=== PATIENT | female | born 1965 | race Caucasian/White ===

== ENCOUNTER 2018-10-27 06:11 | Day surgery (SDC) | payer SELFPAY ==
[2018-10-26 09:33] VITALS: BMI 21.9
[2018-10-27] MEDS ORDERED: MIDAZOLAM HCL 2 MG/2 ML SINGLE DOSE VIAL ONE (07:19)
[2018-10-27] MEDS ORDERED: ROCURONIUM BROMIDE 50 MG/5 ML VIAL ONE (07:19)
[2018-10-27] MEDS ORDERED: PROPOFOL 20 ML ONE ×2 (07:19→14:14)
[2018-10-27] MEDS ORDERED: SUCCINYLCHOLINE CHLORIDE 200 MG/10 ML VIAL ONE (07:19)
[2018-10-27] MEDS ORDERED: LIDOCAINE HCL/PF 2% SDV 5ML VIAL ONE (07:20)
[2018-10-27] MEDS ORDERED: SODIUM CHLORIDE 0.9% P/F 10 ML VIAL IJ ONE (07:20)
[2018-10-27] MEDS ORDERED: ceFAZolin SODIUM 1 GM VIAL ONE (07:20)
[2018-10-27] MEDS ORDERED: DEXAMETHASONE SOD PHOSPHATE 4 MG/1 ML VIAL ONE (07:20)
[2018-10-27] MEDS ORDERED: ESMOLOL HCL 100,000 MCG/10 ML VIAL ONE (07:22)
[2018-10-27] MEDS ORDERED: BACITRACIN 15 GM TUBE TOPICAL OINTMENT ONE ×2 (07:35→13:52)
[2018-10-27] MEDS ORDERED: MINERAL OIL 25 ML OIL ONE ×2 (07:35→13:00)
[2018-10-27] MEDS ORDERED: KETAMINE HCL 200 MG/20 ML VIAL ONE (07:41)
[2018-10-27] MEDS ORDERED: ceFAZolin SODIUM 1 GM VIAL IVPB ONE ×2 (08:35→12:30)
[2018-10-27] MEDS ORDERED: LIDOCAINE 1%/EPI 1:100000 (50 ML MULTI DOSE VIAL) NR ONE (08:45)
[2018-10-27] MEDS ORDERED: PHENYLEPHRINE HCL 10 MG/1 ML SINGLE DOSE VIAL ONE (08:59)
[2018-10-27] MEDS ORDERED: LIDOCAINE 1%/EPI 1:100000 (20 ML MULTI DOSE VIAL) ONE (09:05)
[2018-10-27] MEDS ORDERED: ePHEDrine SULFATE 50 MG/1 ML AMPULE ONE (09:24)
[2018-10-27] MEDS ORDERED: BSS (NA/CA/MG/K) BALANCED SALT SOLUTION OPHTH SOLN 15 ML BOTTLE OU ONE (11:25)
[2018-10-27] MEDS ORDERED: MINERAL OIL 25 ML OIL TP ONE ×2 (12:52)
[2018-10-27] MEDS ORDERED: BENZOIN TINCTURE SWABSTICK TP ONE (13:58)
[2018-10-27] MEDS ORDERED: BACITRACIN 15 GM TUBE TOPICAL OINTMENT TP ONE (14:20)
[2018-10-27] MEDS ORDERED: diazePAM 5 MG TABLET PO PRN (14:32)
[2018-10-27] MEDS ORDERED: ACETAMINOPHEN 325 MG TABLET (FP) PO PRN ×3 (14:32→17:07)
[2018-10-27] MEDS ORDERED: LACTATED RINGERS SOLUTION 1,000 ML IV SCH (14:45)
[2018-10-27] MEDS ORDERED: ACETAMINOPHEN INJECTION 100 ML IVPB ONE (15:48)
[2018-10-27] MEDS ORDERED: ACETAMINOPHEN 1000 MG/100 ML VIAL (NON FORMULARY) IVPB ONE (15:58)
[2018-10-27] MEDS ORDERED: oxyCODONE HCL 5 MG TABLET PO PRN ×2 (17:06→17:07)
[2018-10-27] MEDS: CEFAZOLIN 1 GM/D5W 1 GM/50 ML BAG IVPB SCH (18:31)
[2018-10-27] MEDS: TOBRA 0.3%/DEXAMETH 0.1% OPHTHALMIC SUSP 2.5 ML BTL OU SCH ×3 (18:31→22:45)
[2018-10-27] MEDS ORDERED: PT OWN MED DRAWER 7, Y5N ONE ×2 (19:13→21:24)
[2018-10-27] MEDS: ONDANSETRON 4 MG/2 ML VIAL IVPUSH PRN (19:32)
[2018-10-27] MEDS: MORPHINE SULFATE 2 MG/ML VIAL IVPUSH PRN (20:12)
[2018-10-27] MEDS ORDERED: TOBRAMYCIN/DEXAMETHASONE OPHTH. OINTMENT 1 TUBE OU SCH (22:00)
[2018-10-27] MEDS: cloNIDine HCL 0.1 MG TABLET PO SCH (22:45)
[2018-10-28] MEDS: CEFAZOLIN 1 GM/D5W 1 GM/50 ML BAG IVPB SCH ×3 (00:01→11:22)
[2018-10-28] MEDS: MORPHINE SULFATE 2 MG/ML VIAL IVPUSH PRN (00:01)
[2018-10-28] MEDS: ONDANSETRON 4 MG/2 ML VIAL IVPUSH PRN ×2 (00:02→08:05)
[2018-10-28] MEDS: TOBRA 0.3%/DEXAMETH 0.1% OPHTHALMIC SUSP 2.5 ML BTL OU SCH ×2 (06:14→11:32)
[2018-10-28] MEDS ORDERED: THYROID 30 MG TABLET PO SCH (07:00)
[2018-10-28] MEDS ORDERED: THYROID 60 MG TABLET PO SCH (07:00)
[2018-10-28 11:10] VITALS: BP 102/60; PULSE 56; TEMP 98
[2018-10-28] MEDS ORDERED: PT OWN MED DRAWER 7, Y5N ONE (11:20)
[2018-10-28] MEDS: cloNIDine HCL 0.1 MG TABLET PO SCH (12:24)
--- NOTE | 2018-10-29 09:30 | OP ---
DATE OF OPERATION: 10/27/2018 PREOPERATIVE DIAGNOSES: 1. Dermatochalasis of bilateral upper and lower eyelids. 2. 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 POSTOPERATIVE DIAGNOSES: 1. Dermatochalasis of bilateral upper and lower eyelids. 2. 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 PROCEDURES: 1. Bilateral upper and lower blepharoplasties. 2. Bilateral face and neck lift (superficial musculoaponeurotic system elevation and plication). 3. Autologous fat transfer from submental area to bilateral malar fat pads. ATTENDING SURGEON: Marcello Blakely MD ANESTHESIA: General endotracheal. ESTIMATED BLOOD LOSS: 30 mL. SPECIMEN: None. DRAINS: No. 15 round Pedro drain x2 to face and neck. COMPLICATIONS: None. CONDITION: Stable to recovery room, extubated. INDICATIONS: The patient is a 53-year-old female who presents with bilateral upper and lower eyelid dermatochalasis as well as facial aging changes, including decent of the malar fat pad and jowling. The patient discussed preoperatively a desire to correct these changes and I have, therefore, recommended a bilateral upper and lower blepharoplasty as well as a face and neck lift. In addition, the patient will undergo autologous fat transfer from the submental area to bilateral cheeks. The risks, benefits, and alternatives were discussed with the patient in detail preoperatively and all questions were answered. The risks include, but are not limited to, bleeding; infection; pain; need for revision or further surgery; facial asymmetry; damage to neighboring structures, including nerves, arteries, veins, and tendons; damage to the facial nerve and its branches. The patient understands these risks and has elected to proceed with surgery. PROCEDURE: After proper identification and marking the patient in the preoperative holding area, the patient was transported to the operating room and placed supine on the table, where noninvasive anesthesia monitors were applied. Intravenous access was established, general anesthesia was administered, and the patient was intubated without difficulty. SCD boots were applied to bilateral lower extremities, intravenous antibiotics were then given. The head of the bed was then turned 90 degrees and the patient was placed onto a shoulder roll as well as donut head well puller. At this point, the patient's preoperative upper eyelid markings were reinforced. In addition, the upper and lower eyelid fat pads were outlined. Next, bilateral preauricular and postauricular incisions in a standard facelift fashion were drawn and extended in both the temporal and occipital hairlines. The preoperative markings were then infiltrated with 0.5% lidocaine with 1:200,000 units of epinephrine. This local anesthetic solution was then injected in a subdermal plane underneath the face and neck skin flaps. A total of 60 mL of local anesthesia were infiltrated between the face, neck, and bilateral upper and lower eyelids. At this point, the patient's face was prepped and draped sterilely. After a timeout was performed, attention was first turned towards the right upper eyelid. A No. 15 blade was used to make the preoperative markings and the redundant eyelid skin was removed just below the level of the dermis. At this point, a curved Tomi scissors was used to excise a rim of orbicularis muscle and a central portion of the skin excision. Next, attention was turned towards the medial and central fat pads. Gentle pressure was placed on the right globe. Corneal protectors had been placed in bilateral globes and lubricated with Lacri-Lube. The septum was then entered and the retroseptal fat in both the medial and central pockets were individually teased out. Care was taken to avoid over-resection of the fat. Electrocautery was used to remove the fat and the fat was placed onto a moist Telfa pad in order to compare the two sides. Once this was completed, hemostasis was achieved. The upper eyelid incision was closed with a 6-0 nylon in a simple interrupted fashion along the lateral margin and a 5-0 nylon in a running subcuticular fashion for the remainder. Once the right side was closed, attention was turned towards the left side, where the exact same procedure was performed and, therefore, only one side will be dictated. Next, attention was turned towards the lower eyelids. Beginning on the patient's left side, eyelid hooks were placed at the medial and lateral margins of the lower eyelid. Electrocautery was then used to make a transconjunctival incision below the tarsal margin. A preseptal plane was entered and this was developed inferiorly until the retroseptal fat pads were reached. At this point, the medial, central, and lateral fat compartments were individually opened. The redundant fat was gently teased out and removed with electrocautery from each compartment. Once an adequate amount had been removed, the conjunctival flaps were redraped. They were reapproximated to each other using a 5-0 fast-absorbing plain gut in interrupted buried fashion at the medial and lateral limbus margins. At this point, attention was turned towards the redundant skin. Gentle sweeping of the lower eyelid skin on the left side was performed in an upward fashion. A conservative pinch of skin was made with a smooth Adson just below the ciliary margin. This redundant skin was then excised in a full-thickness fashion with a curved iris scissors. Care was taken to ensure the preseptal orbicularis fibers were maintained. Next, electrocautery was obtained and the eyelid skin margins were reapproximated using a 5-0 fast-absorbing plain gut in a simple running fashion. Once the lower blepharoplasty was completed on the left side, attention was turned towards the right side, where the exact same procedure was performed and, therefore, only one side will be dictated. At this point, moistened gauze and gentle ice packs were placed over bilateral eyes and attention was turned towards the submental area. A submental stab incision was made and liposuction was performed of the central neck subcutaneous fat. The lipoaspirate was collected into a sterile specimen trap and then was filtered on Telfa pads and loaded into 1 mL syringes in preparation for fat transfer. The submental incision was closed with a 5-0 fast-absorbing plain gut in a simple running fashion. Next, attention was turned towards the right facelift. Sterile cotton was placed into the right ear canal. The preauricular and retroauricular incisions of the facelift were then made. The face and neck flap was then raised just above the level of the SMAS. Once the dissection pocket continued around the neck into the central submental area, it entered the liposuction cavity. Hemostasis was then achieved with bipolar electrocautery on the skin flaps. Next, attention was turned towards the SMAS. The mobile and fixed margins of the SMAS were identified. An inferomedially-based SMAS flap was then designed and incised with a No. 10 blade. It was then raised in a sub-SMAS layer until adequate mobilization of the jowls had been obtained. Next, the SMAS flap was split along its posterior margin and was transposed in a retroauricular fashion. Once the amount of tension had been determined, a 3-0 Vicryl suture was used to inset the SMAS flap to the mastoid fascia in an interrupted [id number] fashion. Once this was completed, plication of the upper SMAS over the malar area was performed with a 3-0 Vicryl suture in an interrupted [id number] fashion. Next, attention was turned towards the lateral platysma. A 3-0 Vicryl suture was used to advance the lateral border laterally and inset it using a 3-0 Vicryl suture in an interrupted [id number] fashion. Next, the face was irrigated and hemostasis was ensured. A No. 15 round Pedro drain was placed underneath the neck flap into the central submental portion. It was brought out through a separate stab incision in the temporal hairline superior to the incision. Next, the skin flap was redraped. The amount of redundant skin to be removed was then marked. An oblique vector for the face and a more vertical vector for the neck were used. Once the redundant skin had been excised, the skin flap was inset using a 3-0 Monocryl in an interrupted buried deep dermal fashion at the payton tension points, followed by a 5-0 fast-absorbing plain gut in a simple running fashion preauricularly and a 4-0 plain gut in a simple running fashion retroauricularly. A 4-0 chromic gut suture was used around the temporal hairline margin and a skin stapler was used to reapproximate the skin edges in the occipital scalp. The temporal scalp was closed with a 4-0 chromic gut suture in a simple running fashion. Once the left side was completed, the patient's head was turned and attention was turned towards the right side, where the exact same procedure was performed and, therefore, only one side will be dictated. Once bilateral face incisions had been closed, stab incisions were made bilaterally along the anterior temporal hairline and the [place] cannula was then used to perform autologous fat transfer to bilateral malar fat pads. A total of 3 mL were distributed evenly among the 2 sides. Once this was completed, the access incisions were closed with a 5-0 fast-absorbing plain gut in a simple interrupted fashion. The patient's face and hair were then washed, the corneal protectors were removed, and the eyes flushed with balanced salt solution. Benzoin and Steri-Strips were applied to the upper eyelid closure lines. Bacitracin was then applied to the face and neck incisions, followed by sterile cotton moistened with mineral oil, a Kerlix head wrap, and a Coban for moderate compression. The patient, at this point, was slowly awakened and was extubated without incident and was transported to recovery room in stable condition. MARCELLO BLAKELY M.D. [id number]
== END 2018-10-28 13:02 | disposition home or self-care (01) ==
LOC: JASU-SURG 06:11 → JASUSAT 06:11 → J6S 16:52 → JASUSAT 10-28 13:02
PROVIDERS: ATTEND Plastic Surgery
PROC: 080P0ZZ Alteration of Left Upper Eyelid, Open Approach (ICD-10-PCS; 2018-10-27)
PROC: 080N0ZZ Alteration of Right Upper Eyelid, Open Approach (ICD-10-PCS; 2018-10-27)
PROC: 0W020ZZ Alteration of Face, Open Approach (ICD-10-PCS; 2018-10-27)
PROC: 0W060ZZ Alteration of Neck, Open Approach (ICD-10-PCS; 2018-10-27)
PROC: 080R0ZZ Alteration of Left Lower Eyelid, Open Approach (ICD-10-PCS; principal; 2018-10-27 07:30)
PROC: 080Q0ZZ Alteration of Right Lower Eyelid, Open Approach (ICD-10-PCS; 2018-10-27 07:30)
DX: H02.834 Dermatochalasis of left upper eyelid (principal); H02.831 Dermatochalasis of right upper eyelid; E65 Localized adiposity; L98.7 Excessive and redundant skin and subcutaneous tissue
CPT/HCPCS: 94760; J0131; J0735